=== PATIENT | female | born 1995 | race Caucasian/White ===

== ENCOUNTER 2022-02-20 05:04 | Inpatient (IN) | payer OTHER ==
[~2022-02-20 05:04] MED LIST: Bupivacaine 0.25% 10 ML SDV ONE
[2022-02-20] MEDS ORDERED: Ondansetron 4 MG/2 ML SDV IVPUSH PRN (05:55)
[2022-02-20] MEDS ORDERED: Sodium Chloride 0.9% 10 ML Syringe FLUSH PRN (05:55)
[2022-02-20] MEDS ORDERED: Nalbuphine HCl 10 MG/ 1ML Amp IVPUSH PRN (05:55)
[2022-02-20] MEDS ORDERED: Oxytocin/Lactated Ringers 10 UNIT/1,000 ML BAG IV SCH ×2 (06:00)
[2022-02-20] MEDS: Lactated Ringers 1,000 ML IV SCH ×4 (06:40→10:21)
[2022-02-20] MEDS ORDERED: ePHEDrine 50 MG/ML SDV IVPUSH PRN (07:20)
[2022-02-20] MEDS ORDERED: Bupivacaine/fentaNYL/NS 100 ML Bag EPIDUR PRN (07:20)
[2022-02-20] MEDS ORDERED: fentaNYL 100 MCG/2 ML SDV EPIDUR PRN (07:20)
[2022-02-20] MEDS ORDERED: diphenhydrAMINE 50 MG/ML SDV IVPUSH PRN (07:20)
[2022-02-20] MEDS: Sodium Chloride 0.9% 10 ML Syringe FLUSH SCH ×2 (12:44→21:17)
[2022-02-20] MEDS ORDERED: Acetaminophen 325 MG Tab PO PRN ×2 (13:51→22:03)
[2022-02-20] MEDS ORDERED: Docusate Sodium 100 MG Cap PO PRN (22:03)
[2022-02-20] MEDS: Benzocaine/Menthol 20%-0.5% Spray 78 GM Cannister TOP PRN (22:58)
[2022-02-20] MEDS: Witch Hazel Medicated Pads 40/Jar TOP PRN (22:58)
[2022-02-21] MEDS: Ibuprofen 600 MG Tab PO PRN ×2 (02:50→10:37)
[2022-02-21] MEDS: Witch Hazel Medicated Pads 40/Jar TOP PRN (18:39)
[2022-02-21] MEDS: Benzocaine/Menthol 20%-0.5% Spray 78 GM Cannister TOP PRN (18:40)
== END 2022-02-22 09:45 | disposition home or self-care (01) | DRG 807 ==
LOC: JD.OBCHECK 05:04 → JD.OB 05:30 → OBSVTOIN 20:12 → JD.OB 20:13
PROVIDERS: ADMIT Obstetrics & Gynecology; ATTEND Obstetrics & Gynecology
PROC: 10E0XZZ Delivery of Products of Conception, External Approach (ICD-10-PCS; principal; 2022-02-20)
PROC: 0KQM0ZZ Repair Perineum Muscle, Open Approach (ICD-10-PCS; 2022-02-20)
PROC: 0UQMXZZ Repair Vulva, External Approach (ICD-10-PCS; 2022-02-20)
PROC: 3E0R3BZ Introduction of Anesthetic Agent into Spinal Canal, Percutaneous Approach (ICD-10-PCS; 2022-02-20)
PROC: 00HU33Z Insertion of Infusion Device into Spinal Canal, Percutaneous Approach (ICD-10-PCS; 2022-02-20)
DX: O48.0 Post-term pregnancy (principal); Z37.0 Single live birth; Z3A.40 40 weeks gestation of pregnancy; Z88.1 Allergy status to other antibiotic agents; O26.893 Other specified pregnancy related conditions, third trimester; Z67.91 Unspecified blood type, Rh negative; O70.1 Second degree perineal laceration during delivery; O71.82 Other specified trauma to perineum and vulva
CPT/HCPCS: 01967; 36415; 51701; 51702; 51798; 59025; 59409; 84112; 85025; 85461; 86592; 86850; 86870; 86900; 86901; A9270-GY; J2590; J2790; J3010; J3490; J7120

== ENCOUNTER 2024-02-07 06:56 | Inpatient (IN) | payer BC ==
[2024-02-07] MEDS ORDERED: Sodium Chloride 0.9% 10 ML Syringe FLUSH PRN (07:10)
[2024-02-07] MEDS ORDERED: Lidocaine 1% 50 ML MDV INJECT PRN (07:10)
[2024-02-07] MEDS ORDERED: Ondansetron 4 MG/2 ML SDV IVPUSH PRN (07:10)
[2024-02-07] MEDS ORDERED: Lactated Ringers 1,000 ML IV SCH (07:15)
[2024-02-07 07:24] LABS: BASOPHILS PERCENT AUTO 0.3 % (0.0-1.0); EOSINOPHILS ABSOLUTE AUTO 0.2 K/mm3 (0.0-0.4); EOSINOPHILS PERCENT AUTO 1.5 % (0.0-6.0); HEMATOCRIT 38.1 % (37.0-47.0); HEMOGLOBIN 13.3 gm/dl (12.0-16.0); IMMATURE GRAN ABSOLUTE AUTO 0.11 K/mm3 (0.00-0.05); LYMPHOCYTES ABSOLUTE AUTO 2.9 K/mm3 (1.0-4.8); LYMPHOCYTES PERCENT AUTO 25.4 % (24.0-44.0); MEAN CORPUSCULAR HEMOGLOBIN 32.1 pg (28.0-32.0); MEAN CORPUSCULAR HGB CONC 34.9 g/dl (32.0-36.0); MEAN PLATELET VOLUME 10.6 fl (9.4-12.3); MONOCYTES ABSOLUTE AUTO 0.4 K/mm3 (0.0-0.8); MONOCYTES PERCENT AUTO 3.3 % (0.0-8.0); NEUTROPHILS ABSOLUTE AUTO 7.9 K/mm3 (1.8-7.7); NEUTROPHILS PERCENT AUTO 68.5 % (41.0-71.0); PLATELET COUNT,PLT 162 K/mm3 (150-400); RED BLOOD CELL COUNT 4.14 M/mm3 (4.10-5.30); WHITE BLOOD CELL COUNT,WBC 11.55 K/mm3 (3.9-11.3)
[2024-02-07] MEDS: Nalbuphine 10 MG/ML Syringe IVPUSH PRN (09:16)
[2024-02-07] MEDS: Oxytocin/Lactated Ringers 30 UNIT/500 ML BAG IV SCH (10:22)
[2024-02-07] MEDS ORDERED: Acetaminophen 325 MG Tab PO PRN (10:49)
[2024-02-07] MEDS ORDERED: Docusate Sodium 100 MG Cap PO PRN (10:49)
[2024-02-07] MEDS ORDERED: Witch Hazel Medicated Pads 40/Jar TOP PRN (10:49)
[2024-02-07] MEDS: Ibuprofen 600 MG Tab PO SCH (12:23)
[2024-02-07] MEDS: Benzocaine/Menthol 20%-0.5% Spray 78 GM Cannister TOP PRN (14:22)
[2024-02-07] MEDS: Oxytocin 10 Units/1 ML SDV ONE (14:23)
[2024-02-07] MEDS: Sodium Chloride 0.9% 10 ML Syringe FLUSH SCH (17:03)
[2024-02-08] MEDS: Prenatal Multivitamin with Calcium/Folic Acid/Iron Tab PO SCH (11:23)
== END 2024-02-08 12:05 | disposition home or self-care (01) | DRG 560 ==
LOC: JD.OB 06:56 → OBSVTOIN 10:19 → JD.OB 10:19
PROVIDERS: ADMIT Obstetrics & Gynecology; ATTEND Obstetrics & Gynecology
PROC: 10E0XZZ Delivery of Products of Conception, External Approach (ICD-10-PCS; principal; 2024-02-07)
PROC: 10907ZC Drainage of Amniotic Fluid, Therapeutic from Products of Conception, Via Natural or Artificial Opening (ICD-10-PCS; 2024-02-07)
PROC: 3E0334Z Introduction of Serum, Toxoid and Vaccine into Peripheral Vein, Percutaneous Approach (ICD-10-PCS; 2024-02-07)
DX: O26.893 Other specified pregnancy related conditions, third trimester (principal); Z37.0 Single live birth; O69.81X0 Labor and delivery complicated by cord around neck, without compression, not applicable or unspecified; Z3A.39 39 weeks gestation of pregnancy; Z88.0 Allergy status to penicillin; Z91.018 Allergy to other foods; Z67.21 Type B blood, Rh negative
CPT/HCPCS: 36415; 36430; 59025; 59409; 85025; 85461; 86592; 86850; 86900; 86901; A9270-GY; J2300; J2790; J3490; J7999

== ENCOUNTER 2025-07-22 06:53 | Inpatient (IN) | payer BC ==
[2025-07-22] MEDS ORDERED: Sodium Chloride 0.9% 10 ML Syringe FLUSH PRN (07:02)
[2025-07-22] MEDS ORDERED: Ondansetron 4 MG/2 ML SDV IVPUSH PRN (07:02)
[2025-07-22] MEDS ORDERED: Oxytocin/0.9 % Sodium Chloride 30 UNIT/500 ML BAG IV SCH (07:15)
[2025-07-22 07:58] LABS: BASOPHILS ABSOLUTE AUTO 0.1 K/mm3 (0.0-0.2); BASOPHILS PERCENT AUTO 0.5 % (0.0-1.0); EOSINOPHILS ABSOLUTE AUTO 0.2 K/mm3 (0.0-0.4); EOSINOPHILS PERCENT AUTO 1.6 % (0.0-6.0); IMMATURE GRAN ABSOLUTE AUTO 0.08 K/mm3 (0.00-0.05); IMMATURE GRAN PERCENT AUTO 0.7 % (0.0-0.4); LYMPHOCYTES ABSOLUTE AUTO 3.2 K/mm3 (1.0-4.8); LYMPHOCYTES PERCENT AUTO 28.5 % (24.0-44.0); MEAN PLATELET VOLUME 10.4 fl (9.4-12.3); MONOCYTES ABSOLUTE AUTO 0.7 K/mm3 (0.0-0.8); MONOCYTES PERCENT AUTO 6.1 % (0.0-8.0); NEUTROPHILS ABSOLUTE AUTO 6.9 K/mm3 (1.8-7.7); NEUTROPHILS PERCENT AUTO 62.6 % (41.0-71.0); NRBC ABSOLUTE 0.00 (0.00-0.02); NRBC PERCENT 0.0 % (0.0-0.2); PLATELET COUNT,PLT 159 K/mm3 (150-400); RED BLOOD CELL COUNT 4.12 M/mm3 (4.10-5.30); WHITE BLOOD CELL COUNT,WBC 11.09 K/mm3 (3.9-11.3)
[2025-07-22] MEDS: Nalbuphine 10 MG/1 ML Vial IVPUSH PRN (09:50)
[2025-07-22] MEDS: Oxytocin/0.9 % Sodium Chloride 30 UNIT/500 ML BAG IV SCH (11:08)
[2025-07-22] MEDS: Lactated Ringers 1,000 ML IV SCH (12:39)
[2025-07-22] MEDS: Witch Hazel Medicated Pads 40/Jar TOP PRN (13:06)
[2025-07-22] MEDS: Benzocaine/Menthol 20%-0.5% Spray 78 GM Cannister TOP PRN (13:07)
[2025-07-22 13:48] LABS: MEAN PLATELET VOLUME 10.4 fl (9.4-12.3); NRBC ABSOLUTE 0.00 (0.00-0.02); NRBC PERCENT 0.0 % (0.0-0.2); PLATELET COUNT,PLT 162 K/mm3 (150-400); RED BLOOD CELL COUNT 4.10 M/mm3 (4.10-5.30); WHITE BLOOD CELL COUNT,WBC 23.26 K/mm3 (3.9-11.3)
[2025-07-22 14:15] LABS: PTT,PARTIAL THROMBOPLSTIN TIME 23.3 SECONDS (21.7-31.4)
[2025-07-22 14:16] LABS: INR < 0.93
[2025-07-22] MEDS: Sodium Chloride 0.9% 10 ML Syringe FLUSH SCH (18:59)
== END 2025-07-23 12:00 | disposition home or self-care (01) | DRG 560 ==
LOC: JD.OB 06:53 → UNDOADMOB 06:53 → JD.OB 07:02 → OBSVTOIN 11:07 → JD.OB 11:08
PROVIDERS: ADMIT Obstetrics & Gynecology; ATTEND Obstetrics & Gynecology
PROC: 10E0XZZ Delivery of Products of Conception, External Approach (ICD-10-PCS; principal; 2025-07-22)
PROC: 3E0334Z Introduction of Serum, Toxoid and Vaccine into Peripheral Vein, Percutaneous Approach (ICD-10-PCS; principal; 2025-07-22)
PROC: 10907ZC Drainage of Amniotic Fluid, Therapeutic from Products of Conception, Via Natural or Artificial Opening (ICD-10-PCS; principal; 2025-07-22)
DX: O72.1 Other immediate postpartum hemorrhage (principal); Z3A.39 39 weeks gestation of pregnancy; Z37.0 Single live birth; Z98.890 Other specified postprocedural states; Z88.0 Allergy status to penicillin; Z88.8 Allergy status to other drugs, medicaments and biological substances; Z79.899 Other long term (current) drug therapy
CPT/HCPCS: 36415; 36430; 59025; 59409; 85025; 85027; 85461; 85610; 85730; 86592; 86850; 86870; 86900; 86901; A9270-GY; J2210; J2300; J2791; J7120; J7999